=== PATIENT | male | born 1950 | race Caucasian/White ===

== ENCOUNTER 2020-09-14 07:11 | Day surgery (SDC) | payer MEDICARE, BC ==
[~2020-09-14] VITALS: Ht 188 cm; Wt 76.0 kg
[~2020-09-14 07:11] MED LIST: BUPIVACAINE/PF 0.5% ONE; EPINEPHRINE 1 MG/ML, 1ML ONE; IBUP-1623 PO; LIDOCAINE/PF 1%-EPI 1:200K, 30 ML ONE; MULT-717 PO; TADA5TAB2 PO; TERA5CAP3 PO; VICODIN PO; tamsulosin PO
[2020-09-14 07:34] VITALS: BP 111/69
[2020-09-14] MEDS ORDERED: CHLORHEXIDINE 15 ML UDC MM STA (07:37)
[2020-09-14] MEDS ORDERED: FENTANYL PF 100 MCG/2ML ONE (07:44)
[2020-09-14] MEDS ORDERED: LACTATED RINGERS 1,000 ML IV SCH (08:00)
[2020-09-14] MEDS ORDERED: PHENYLEPHRINE 10 MG/ML ONE (09:03)
[2020-09-14] MEDS ORDERED: METHOCARBAMOL 1,000 MG in DEXTROSE 5% 100 ML IV PRN (09:30)
[2020-09-14] MEDS ORDERED: HYDROmorphone 1 MG/ML, 1ML INJ IVPush PRN (09:30)
[2020-09-14] MEDS ORDERED: OXYcodone 5 MG/5 ML ORAL.SOL UDC PO PRN (09:30)
[2020-09-14] MEDS ORDERED: FENTANYL PF 100 MCG/2ML IV PRN (09:30)
[2020-09-14] MEDS ORDERED: ONDANSETRON 2MG/ML, 2ML IVPush PRN (09:30)
[2020-09-14] MEDS ORDERED: PROMETHAZINE 25 MG/ML, 1ML IVPush PRN (09:30)
[2020-09-14] MEDS ORDERED: PROMETHAZINE 25 MG SUPP PR PRN (09:30)
[2020-09-14] MEDS ORDERED: ACETAMINOPHEN 325 MG TABLET PO PRN (09:30)
[2020-09-14] MEDS ORDERED: ROCURONIUM 10MG/ML,5ML ONE (09:46)
[2020-09-14] MEDS ORDERED: GLYCOPYRROLATE 0.2MG/1ML, 5ML ONE (09:46)
[2020-09-14] MEDS ORDERED: PROPOFOL 10 MG/ML, 20ML ONE (09:46)
[2020-09-14] MEDS ORDERED: NEOSTIGMINE 1 MG/ML, 10ML ONE (09:46)
[2020-09-14] MEDS ORDERED: CEFAZOLIN 1,000 MG ONE (09:46)
[2020-09-14] MEDS ORDERED: SUCCINYLCHOLINE 20 MG/ML, 10ML ONE (09:46)
[2020-09-14] MEDS ORDERED: DEXAMETHASONE 4 MG/ML, 1ML ONE (09:46)
[2020-09-14] MEDS ORDERED: ONDANSETRON 2MG/ML, 2ML ONE (09:46)
[2020-09-14] MEDS ORDERED: METHOCARBAMOL 1,000 MG in DEXTROSE 5% 100 ML IV ONE (10:30)
== END 2020-09-14 13:05 | disposition home or self-care (01) ==
LOC: OUT 07:11
PROVIDERS: ATTEND Orthopaedic Surgery
DX: S46.011A Strain of muscle(s) and tendon(s) of the rotator cuff of right shoulder, initial encounter (principal); Z20.828 Contact with and (suspected) exposure to other viral communicable diseases; S43.431A Superior glenoid labrum lesion of right shoulder, initial encounter; M75.41 Impingement syndrome of right shoulder; M19.011 Primary osteoarthritis, right shoulder; M75.51 Bursitis of right shoulder; G89.18 Other acute postprocedural pain; Z79.899 Other long term (current) drug therapy; Z88.1 Allergy status to other antibiotic agents; Z98.890 Other specified postprocedural states; X58.XXXA Exposure to other specified factors, initial encounter; Y93.89 Activity, other specified; Y92.89 Other specified places as the place of occurrence of the external cause; Y99.8 Other external cause status
CPT/HCPCS: 29823; 29824; 29826; 29827; 29828; 64415; 87635; 93005; C1713; J0330; J0690; J1100; J2370; J2405; J2704; J2710; J2800; J3010; J7120; J0171